=== PATIENT | female | born 1940 | race Caucasian/White ===

== ENCOUNTER → 2018-09-14 | Outpatient (REF) | payer MEDICARE, OTHER ==
[~2018-09-14] MED LIST: ACETIC ACID2 % AU; AMLODIPINE5 MG PO; ASPIRIN LOW DOS81 M2 PO; ASPIRIN325 MG PO; LEVOTHYROXIN75 MCG PO; LEVOTHYROXIN88 MC1 PO; LOTENSIN HCT1 TAB PO
== END | disposition home or self-care (01) ==
LOC: MAMMO 10:30
PROVIDERS: ATTEND Internal Medicine
DX: Z12.31 Encounter for screening mammogram for malignant neoplasm of breast (principal)

== ENCOUNTER 2019-03-03 08:08 | Emergency (ER) | payer MEDICARE, OTHER ==
[~2019-03-03] VITALS: Ht 167.6 cm; Wt 75.0 kg
[2019-03-03 08:42] LABS: HEMOGLOBIN 14.5 g/dl (12.0-16.0); IMMATURE GRANULOCYTES 0.7 % (0.0-5.0); MEAN CELL VOLUME 90.7 fL CALC (80.0-100.0); MEAN CORPUSCULAR HGB 29.2 pG CALC (26.0-32.0); MEAN CORPUSCULAR HGB CONC 32.2 g/L CALC (32.0-36.0); NEUT# 11.11 thou/uL (2.00-7.15); RED BLOOD COUNT 4.96 mill/uL (4.20-5.60)
[2019-03-03 08:58] LABS: PROTHROMBIN TIME 10.3 SECONDS (9.0-12.5)
[2019-03-03 09:00] LABS: ALBUMIN 4.4 g/dL (3.2-5.0); ALKALINE PHOSPHATASE 86 u/l (38-126); ANION GAP 13 (6-22 (CALC)); BUN 19 mg/dL (8-23); BUN/CREATININE RATIO 20 (12-20 (CALC)); CARBON DIOXIDE 30 mmol/l (22-30); CHLORIDE 100 mmol/l (95-108); CREATININE 0.9 mg/dL (0.5-1.0); GFR 60 ML/MIN (>=60 (CALC)); GFR FOR AFR.AMER. > 60 ML/MIN (>=60 (CALC)); SGOT/AST 20 u/l (9-36); SODIUM 139 mmol/l (137-146); TOTAL PROTEIN 8.1 g/dL (6.3-8.2)
[2019-03-03 12:00] VITALS: BP 163/77
== END 2019-03-03 12:00 ==
LOC: ED 08:08
PROVIDERS: Family Medicine
DX: I63.9 Cerebral infarction, unspecified (principal); R20.0 Anesthesia of skin; R29.705 NIHSS score 5

== ENCOUNTER 2019-07-03 | Emergency (ER) | payer MEDICARE, OTHER ==
[2019-07-03] MEDS ORDERED: ELIQUIS5 MG (11:56)
[2019-07-03] MEDS ORDERED: METOPROL TAR25 MG PO (11:57)
[2019-07-03 13:20] LABS: URINE BILIRUBIN - DIPSTICK NEGATIVE (NEGATIVE); URINE BLOOD DIPSTICK MODERATE (NEGATIVE); URINE COLOR YELLOW; URINE GLUCOSE - DIPSTICK NEGATIVE (NEGATIVE); URINE KETONE NEGATIVE (NEGATIVE); URINE LEUK ESTERASE NEGATIVE (NEGATIVE); URINE NITRITE - DIPSTICK NEGATIVE (Negative); URINE PROTEIN - DIPSTICK NEGATIVE (NEG-TRACE); URINE SPECIFIC GRAVITY <=1.005
[2019-07-03] MEDS ORDERED: TESSALON PER100 MG PO (13:49)
[2019-07-03] MEDS ORDERED: AMOXICILLIN875 MG PO (13:49)
== END 2019-07-03 14:02 | disposition home or self-care (01) ==
DX: J02.0 Streptococcal pharyngitis (principal); R05 Cough; T46.4X5A Adverse effect of angiotensin-converting-enzyme inhibitors, initial encounter; I10 Essential (primary) hypertension; E03.9 Hypothyroidism, unspecified; Z86.73 Personal history of transient ischemic attack (TIA), and cerebral infarction without residual deficits

== ENCOUNTER 2020-04-14 09:38 | Emergency (ER) | payer MEDICARE, OTHER ==
[~2020-04-14] VITALS: Ht 167.6 cm; Wt 85.0 kg
[~2020-04-14 09:38] MED LIST changes: +AMOXICILLIN875 MG PO; +ELIQUIS5 MG; +METOPROL TAR25 MG PO; +TESSALON PER100 MG PO
[2020-04-14] MEDS ORDERED: FAMCICLOVIR500 MG PO (09:57)
[2020-04-14] MEDS ORDERED: ULTRAM50 M1 PO (09:57)
[2020-04-14] MEDS ORDERED: ZOVIRAX52 TOP (09:57)
[2020-04-14 10:04] VITALS: BP 180/81
== END 2020-04-14 10:20 | disposition home or self-care (01) ==
LOC: ED 09:38
DX: B02.9 Zoster without complications (principal); I10 Essential (primary) hypertension; E03.9 Hypothyroidism, unspecified; Z86.73 Personal history of transient ischemic attack (TIA), and cerebral infarction without residual deficits

== ENCOUNTER 2021-02-06 13:46 | Emergency (ER) | payer MEDICARE, OTHER ==
[~2021-02-06 13:46] MED LIST changes: -ELIQUIS5 MG; +ELIQUIS5 MG PO; +FAMCICLOVIR500 MG PO; -METOPROL TAR25 MG PO; +TOPROL XL25 MG PO; +ULTRAM50 M1 PO; +ZOVIRAX52 TOP
[2021-02-06 14:52] LABS: HEMATOCRIT 41.7 % (37.0-47.0); HEMOGLOBIN 13.2 g/dl (12.0-16.0); IMMATURE GRANULOCYTES 0.1 % (0.0-5.0); MEAN CELL VOLUME 92.7 fL CALC (80.0-100.0); MEAN CORPUSCULAR HGB 29.3 pG CALC (26.0-32.0); MEAN CORPUSCULAR HGB CONC 31.7 g/dL CAL (32.0-36.0); NEUT# 10.21 thou/uL (2.00-7.15); RED BLOOD COUNT 4.5 mill/uL (4.20-5.60); RED CELL DISTRI WIDTH 12.4 % (11.5-15.5)
[2021-02-06 15:01] LABS: ALKALINE PHOSPHATASE 118 u/l (38-126); AMYLASE 38 u/l (30-110); ANION GAP 14 (6-22 (CALC)); BILIRUBIN, TOTAL 0.7 mg/dL (0.0-1.4); BUN 18 mg/dL (8-23); BUN/CREATININE RATIO 21 (12-20 (CALC)); CARBON DIOXIDE 26 mmol/l (22-30); CHLORIDE 97 mmol/l (95-108); CREATININE 0.9 mg/dL (0.5-1.0); GFR 60 ML/MIN (>=60 (CALC)); GFR FOR AFR.AMER. > 60 ML/MIN (>=60 (CALC)); LIPASE 60 u/l (23-300); SGOT/AST 26 u/l (9-36); SODIUM 134 mmol/l (137-146)
[2021-02-06 16:15] VITALS: BP 140/85
[2021-03-05] MEDS ORDERED: DICYCLOMINE HYD10 MG PO (07:42)
[2021-03-05] MEDS ORDERED: LEVO-T88 MCG PO (07:43)
[2021-06-05] MEDS ORDERED: SENNA-S1 TAB PO (12:58)
[2021-06-05] MEDS ORDERED: LOTENSIN HCT1 TAB PO (12:58)
[2021-06-05] MEDS ORDERED: MULTI VIT PO (12:59)
[2021-06-05] MEDS ORDERED: ACETAMIN500 M2 PO (12:59)
== END 2021-02-06 17:20 | disposition home or self-care (01) ==
LOC: ED 13:46
PROVIDERS: Emergency Medicine
DX: K59.00 Constipation, unspecified (principal); I10 Essential (primary) hypertension; E03.9 Hypothyroidism, unspecified; Z86.73 Personal history of transient ischemic attack (TIA), and cerebral infarction without residual deficits; Z90.710 Acquired absence of both cervix and uterus; Z85.42 Personal history of malignant neoplasm of other parts of uterus

== ENCOUNTER 2021-02-11 07:35 | Emergency (ER) | payer MEDICARE, OTHER ==
[2021-02-11 08:18] LABS: HEMOGLOBIN 13.4 g/dl (12.0-16.0); IMMATURE GRANULOCYTES 0.3 % (0.0-5.0); MEAN CELL VOLUME 91.1 fL CALC (80.0-100.0); MEAN CORPUSCULAR HGB 29.1 pG CALC (26.0-32.0); MEAN CORPUSCULAR HGB CONC 31.9 g/dL CAL (32.0-36.0); NEUT# 9.69 thou/uL (2.00-7.15); RED BLOOD COUNT 4.61 mill/uL (4.20-5.60); RED CELL DISTRI WIDTH 12.3 % (11.5-15.5)
[2021-02-11 08:38] LABS: ALKALINE PHOSPHATASE 114 u/l (38-126); ANION GAP 13 (6-22 (CALC)); BILIRUBIN, TOTAL 0.5 mg/dL (0.0-1.4); BUN 11 mg/dL (8-23); BUN/CREATININE RATIO 12 (12-20 (CALC)); CARBON DIOXIDE 30 mmol/l (22-30); CHLORIDE 93 mmol/l (95-108); CREATININE 0.9 mg/dL (0.5-1.0); GFR 60 ML/MIN (>=60 (CALC)); GFR FOR AFR.AMER. > 60 ML/MIN (>=60 (CALC)); LIPASE 34 u/l (23-300); POTASSIUM 4.3 mmol/l (3.5-5.1); SGOT/AST 21 u/l (9-36); SODIUM 132 mmol/l (137-146)
[2021-02-11 08:55] LABS: URINE BILIRUBIN - DIPSTICK NEGATIVE (NEGATIVE); URINE BLOOD DIPSTICK LARGE (NEGATIVE); URINE COLOR YELLOW; URINE GLUCOSE - DIPSTICK NEGATIVE (NEGATIVE); URINE KETONE NEGATIVE (NEGATIVE); URINE LEUK ESTERASE TRACE (NEGATIVE); URINE PH 6.5 (4.5-8.0); URINE PROTEIN - DIPSTICK NEGATIVE (NEG-TRACE); URINE SPECIFIC GRAVITY <=1.005; URINE UROBILINOGEN - DIPSTICK 0.2 E.U./dL (0.2)
[2021-02-11 09:08] LABS: URINE NITRITE - DIPSTICK NEGATIVE (Negative); URINE SQUAMOUS EPITHELIAL CELL FEW EPI/hpf (0-FEW); URINE WBC 0-2 WBC/hpf (0-5)
[2021-02-11] MEDS ORDERED: HYOSCYAMINE0.125 M3 PO (10:43)
[2021-02-11] MEDS ORDERED: HYDROCO/APAP1 TA9 PO (10:43)
[2021-02-11 10:52] VITALS: BP 169/87
[2021-03-05] MEDS ORDERED: DICYCLOMINE HYD10 MG PO (07:42)
[2021-03-05] MEDS ORDERED: LEVO-T88 MCG PO (07:43)
[2021-06-05] MEDS ORDERED: SENNA-S1 TAB PO (12:58)
[2021-06-05] MEDS ORDERED: LOTENSIN HCT1 TAB PO (12:58)
[2021-06-05] MEDS ORDERED: MULTI VIT PO (12:59)
[2021-06-05] MEDS ORDERED: ACETAMIN500 M2 PO (12:59)
== END 2021-02-11 11:05 | disposition home or self-care (01) ==
LOC: ED 07:35
PROVIDERS: Family Medicine
DX: R10.31 Right lower quadrant pain (principal); N32.9 Bladder disorder, unspecified; R91.1 Solitary pulmonary nodule; I31.9 Disease of pericardium, unspecified; I48.91 Unspecified atrial fibrillation; I10 Essential (primary) hypertension; E03.9 Hypothyroidism, unspecified; Z86.73 Personal history of transient ischemic attack (TIA), and cerebral infarction without residual deficits
CPT/HCPCS: Q9967

== ENCOUNTER 2021-02-16 11:26 | Emergency (ER) | payer MEDICARE, OTHER ==
[~2021-02-16 11:26] MED LIST changes: +HYDROCO/APAP1 TA9 PO; +HYOSCYAMINE0.125 M3 PO
[2021-02-16 12:57] LABS: URINE BLOOD DIPSTICK LARGE (NEGATIVE); URINE COLOR RED; URINE GLUCOSE - DIPSTICK NEGATIVE (NEGATIVE); URINE KETONE 15 mg/dL (NEGATIVE); URINE LEUK ESTERASE NEGATIVE (NEGATIVE); URINE PROTEIN - DIPSTICK 30 mg/dL (NEG-TRACE); URINE SPECIFIC GRAVITY 1.015; URINE UROBILINOGEN - DIPSTICK 0.2 E.U./dL (0.2)
[2021-02-16 13:02] LABS: URINE BILIRUBIN - DIPSTICK NEGATIVE (NEGATIVE); URINE NITRITE - DIPSTICK NEGATIVE (Negative)
[2021-02-16 13:13] LABS: HEMATOCRIT 38.5 % (37.0-47.0); HEMOGLOBIN 12.3 g/dl (12.0-16.0); IMMATURE GRANULOCYTES 0.2 % (0.0-5.0); MEAN CELL VOLUME 92.1 fL CALC (80.0-100.0); MEAN CORPUSCULAR HGB 29.4 pG CALC (26.0-32.0); MEAN CORPUSCULAR HGB CONC 31.9 g/dL CAL (32.0-36.0); NEUT# 11.49 thou/uL (2.00-7.15); RED BLOOD COUNT 4.18 mill/uL (4.20-5.60); RED CELL DISTRI WIDTH 12.5 % (11.5-15.5)
[2021-02-16 13:14] LABS: URINE RBC TNTC RBC/hpf (0-5)
[2021-02-16 13:32] LABS: ALBUMIN 3.6 g/dL (3.2-5.0); ALKALINE PHOSPHATASE 98 u/l (38-126); ANION GAP 12 (6-22 (CALC)); BILIRUBIN, TOTAL 0.6 mg/dL (0.0-1.4); BUN 9 mg/dL (8-23); BUN/CREATININE RATIO 11 (12-20 (CALC)); CARBON DIOXIDE 26 mmol/l (22-30); CHLORIDE 95 mmol/l (95-108); CREATININE 0.8 mg/dL (0.5-1.0); GFR > 60 ML/MIN (>=60 (CALC)); GFR FOR AFR.AMER. > 60 ML/MIN (>=60 (CALC)); LIPASE 31 u/l (23-300); POTASSIUM 4.4 mmol/l (3.5-5.1); SGOT/AST 20 u/l (9-36); SODIUM 129 mmol/l (137-146); TOTAL PROTEIN 7.2 g/dL (6.3-8.2)
[2021-02-16] MEDS ORDERED: KEFLEX500 MG PO (19:21)
[2021-02-16 20:05] VITALS: BP 168/68
[2021-03-05] MEDS ORDERED: DICYCLOMINE HYD10 MG PO (07:42)
[2021-03-05] MEDS ORDERED: LEVO-T88 MCG PO (07:43)
[2021-06-05] MEDS ORDERED: SENNA-S1 TAB PO (12:58)
[2021-06-05] MEDS ORDERED: LOTENSIN HCT1 TAB PO (12:58)
[2021-06-05] MEDS ORDERED: ACETAMIN500 M2 PO (12:59)
[2021-06-05] MEDS ORDERED: MULTI VIT PO (12:59)
== END 2021-02-16 20:07 | disposition home or self-care (01) ==
LOC: ED 11:26
DX: N32.9 Bladder disorder, unspecified (principal); I10 Essential (primary) hypertension; E03.9 Hypothyroidism, unspecified; Z86.73 Personal history of transient ischemic attack (TIA), and cerebral infarction without residual deficits; Z20.822 Contact with and (suspected) exposure to COVID-19
CPT/HCPCS: Q9967

== ENCOUNTER 2021-03-08 06:53 | Day surgery (SDC) | payer MEDICARE, OTHER ==
[~2021-03-08] VITALS: Ht 167.6 cm; Wt 69.9 kg
[~2021-03-08 06:53] MED LIST changes: +DICYCLOMINE HYD10 MG PO; +KEFLEX500 MG PO; +LEVO-T88 MCG PO
[2021-03-08 10:30] VITALS: BP 131/68
== END 2021-03-08 11:05 | disposition home or self-care (01) ==
LOC: ORM 06:53
PROVIDERS: ATTEND Urology
PROC: 0TBB8ZX Excision of Bladder, Via Natural or Artificial Opening Endoscopic, Diagnostic (ICD-10-PCS; principal; 2021-03-08)
DX: N32.89 Other specified disorders of bladder (principal); I48.91 Unspecified atrial fibrillation; I10 Essential (primary) hypertension; I25.10 Atherosclerotic heart disease of native coronary artery without angina pectoris; I71.4 Abdominal aortic aneurysm, without rupture; E03.9 Hypothyroidism, unspecified; R91.1 Solitary pulmonary nodule; Z86.73 Personal history of transient ischemic attack (TIA), and cerebral infarction without residual deficits; Z85.42 Personal history of malignant neoplasm of other parts of uterus; Z79.01 Long term (current) use of anticoagulants
CPT/HCPCS: J2710

== ENCOUNTER 2021-06-07 06:12 | Day surgery (SDC) | payer MEDICARE, OTHER ==
[~2021-06-07] VITALS: Ht 167.6 cm; Wt 68.0 kg
[~2021-06-07 06:12] MED LIST changes: +ACETAMIN500 M2 PO; +MULTI VIT PO; +SENNA-S1 TAB PO
[2021-06-07 09:39] VITALS: BP 147/67
== END 2021-06-07 10:10 | disposition home or self-care (01) ==
LOC: ORM 06:12
PROVIDERS: ATTEND Urology
PROC: 0TBB8ZX Excision of Bladder, Via Natural or Artificial Opening Endoscopic, Diagnostic (ICD-10-PCS; principal; 2021-06-07)
DX: C67.3 Malignant neoplasm of anterior wall of bladder (principal); I48.91 Unspecified atrial fibrillation; I10 Essential (primary) hypertension; I25.10 Atherosclerotic heart disease of native coronary artery without angina pectoris; I71.4 Abdominal aortic aneurysm, without rupture; E03.9 Hypothyroidism, unspecified; R91.1 Solitary pulmonary nodule; Z85.42 Personal history of malignant neoplasm of other parts of uterus; Z79.01 Long term (current) use of anticoagulants
CPT/HCPCS: J1956

== ENCOUNTER 2021-08-07 06:39 | Emergency (ER) | payer MEDICARE, OTHER ==
[~2021-08-07] VITALS: Ht 167.6 cm; Wt 68.0 kg
[2021-08-07 07:33] LABS: URINE BILIRUBIN - DIPSTICK NEGATIVE (NEGATIVE); URINE BLOOD DIPSTICK LARGE (NEGATIVE); URINE COLOR YELLOW; URINE GLUCOSE - DIPSTICK NEGATIVE (NEGATIVE); URINE KETONE TRACE mg/dL (NEGATIVE); URINE LEUK ESTERASE TRACE (NEGATIVE); URINE PH 6.5 (4.5-8.0); URINE PROTEIN - DIPSTICK TRACE mg/dL (NEG-TRACE); URINE SPECIFIC GRAVITY 1.015; URINE UROBILINOGEN - DIPSTICK 0.2 E.U./dL (0.2)
[2021-08-07 07:35] LABS: URINE NITRITE - DIPSTICK NEGATIVE (Negative)
[2021-08-07 07:42] LABS: URINE SQUAMOUS EPITHELIAL CELL FEW EPI/hpf (0-FEW)
[2021-08-07 07:43] LABS: URINE BACTERIA FEW hpf
[2021-08-07 07:53] LABS: HEMATOCRIT 40.1 % (37.0-47.0); HEMOGLOBIN 12.9 g/dl (12.0-16.0); MEAN CELL VOLUME 85.3 fL CALC (80.0-100.0); MEAN CORPUSCULAR HGB 27.4 pG CALC (26.0-32.0); MEAN CORPUSCULAR HGB CONC 32.2 g/dL CAL (32.0-36.0); RED CELL DISTRI WIDTH 13.6 % (11.5-15.5)
[2021-08-07] MEDS ORDERED: DICYCLOMINE10 MG PO (07:53)
[2021-08-07 08:09] LABS: ALBUMIN 3.6 g/dL (3.2-5.0); BILIRUBIN, TOTAL 0.8 mg/dL (0.0-1.4); BUN 16 mg/dL (8-23); BUN/CREATININE RATIO 19 (12-20 (CALC)); CHLORIDE 91 mmol/l (95-108); CREATININE 0.8 mg/dL (0.5-1.0); GFR > 60 ML/MIN (>=60 (CALC)); GFR FOR AFR.AMER. > 60 ML/MIN (>=60 (CALC)); IMMATURE GRANULOCYTES 7.3 % (0.0-5.0); LIPASE 42 u/l (23-300); PLATELET COUNT 68 thou/uL (130-400); POTASSIUM 4.2 mmol/l (3.5-5.1)
[2021-08-07 08:10] LABS: ALKALINE PHOSPHATASE 140 u/l (38-126); ANION GAP 14 (6-22 (CALC)); CARBON DIOXIDE 26 mmol/l (22-30); MANUAL DIFFERENTIAL YES; SGOT/AST 77 u/l (9-36); SODIUM 127 mmol/l (137-146)
[2021-08-07 08:14] LABS: BAND 2 % (0-8)
[2021-08-07 08:15] LABS: PLATELET ESTIMATE MOD DECREASE; POIKILOCYTOSIS FEW
[2021-08-07] MEDS ORDERED: OMNI-PAC300 MG PO (09:56)
[2021-08-07] MEDS ORDERED: TRAMADOL HYDROC50 M1 PO (10:07)
[2021-08-07 10:15] VITALS: BP 117/56
[2021-08-08] MEDS ORDERED: FLEXERIL5 M1 PO ×2 (10:12→15:06)
[2021-08-08] MEDS ORDERED: HYDROCODONE BIT PO (10:13)
[2021-08-08] MEDS ORDERED: LORTAB 5/3255 MG PO (10:14)
== END 2021-08-07 10:15 | disposition home or self-care (01) ==
LOC: ED 06:39
PROVIDERS: Family Medicine
DX: N39.0 Urinary tract infection, site not specified (principal); I10 Essential (primary) hypertension; E03.9 Hypothyroidism, unspecified; Z86.73 Personal history of transient ischemic attack (TIA), and cerebral infarction without residual deficits
CPT/HCPCS: Q9967

== ENCOUNTER 2021-08-08 09:17 | Observation (INO) | payer MEDICARE, OTHER ==
[~2021-08-08] VITALS: Ht 167.6 cm; Wt 65.0 kg
[~2021-08-08 09:17] MED LIST changes: +DICYCLOMINE10 MG PO; +OMNI-PAC300 MG PO; +TRAMADOL HYDROC50 M1 PO
--- NOTE | 2021-08-08 10:11 | NUR ---
PT TO ROOM PER W/C
[2021-08-08] MEDS ORDERED: FLEXERIL5 M1 PO ×2 (10:12→15:06)
[2021-08-08] MEDS ORDERED: HYDROCODONE BIT PO (10:13)
[2021-08-08] MEDS ORDERED: LORTAB 5/3255 MG PO (10:14)
[2021-08-08 10:42] LABS: HEMATOCRIT 40.2 % (37.0-47.0); HEMOGLOBIN 13.1 g/dl (12.0-16.0); IMMATURE GRANULOCYTES 5.7 % (0.0-5.0); MEAN CELL VOLUME 84.6 fL CALC (80.0-100.0); MEAN CORPUSCULAR HGB 27.6 pG CALC (26.0-32.0); MEAN CORPUSCULAR HGB CONC 32.6 g/dL CAL (32.0-36.0); NEUT# 7.35 thou/uL (2.00-7.15); RED BLOOD COUNT 4.75 mill/uL (4.20-5.60)
[2021-08-08 10:57] LABS: ALBUMIN 3.5 g/dL (3.2-5.0); BILIRUBIN, TOTAL 0.8 mg/dL (0.0-1.4); CREATININE 1.3 mg/dL (0.5-1.0); POTASSIUM 4.7 mmol/l (3.5-5.1); TOTAL PROTEIN 7.7 g/dL (6.3-8.2)
[2021-08-08 11:09] LABS: URINE BILIRUBIN - DIPSTICK NEGATIVE (NEGATIVE); URINE BLOOD DIPSTICK LARGE (NEGATIVE); URINE COLOR YELLOW; URINE GLUCOSE - DIPSTICK NEGATIVE (NEGATIVE); URINE KETONE TRACE mg/dL (NEGATIVE); URINE LEUK ESTERASE NEGATIVE (NEGATIVE); URINE PROTEIN - DIPSTICK NEGATIVE (NEG-TRACE); URINE UROBILINOGEN - DIPSTICK 0.2 E.U./dL (0.2)
[2021-08-08 11:13] LABS: URINE NITRITE - DIPSTICK NEGATIVE (Negative)
[2021-08-08 11:14] LABS: URINE EPITHELIAL CELLS FEW EPI/hpf (0-FEW)
--- NOTE | 2021-08-08 11:25 | NUR ---
PT RESTING QUIETLY ON STRETCHER, DAUGHTER AT BEDSIDE. ANSWERS QUESTIONS APPROPRIATELY. MORE AWAKE AT THIS TIME. DENIES ANY COMPLAINTS EXCEPT FOR BACK PAIN. ABLE TO MOVE ALL EXTREMITIES WELL. [facility] SCALE RANDOMLY DONE AND SHE RECEIVED A 0 AT THIS TIME. PT IS TO GO TO CT SCAN FOR A CTA. 2ND BAG OF FLUIDS HUNG FOR LACTIC ACID OF 3.2
--- NOTE | 2021-08-08 12:45 | NUR ---
PT RESTING QUIETLY ON STRETCHER, ADVISED OF WAIT TIME FOR TESTING. FAMILY REMAINS AT BEDSIDE.
--- NOTE | 2021-08-08 13:00 | NUR ---
PT STATES BACK IS HURTING WANTS TO SIT UP ON SIDE OF BED, OBTAINED A W/C AND SAT PT UP, STATES BACK FEELS BETTER, STATES THE TORADOL TOOK EDGE OFF OF THE PAIN. WAS ABLE TO GET UP AND MOVE FROM STRETCHER TO W/C ON OWN.
--- NOTE | 2021-08-08 13:19 | NUR ---
DR. FALCON HERE SPEAKING TO PT AND FAMILY, PT IS A RELATION TO DR. 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 WAS SEEN HERE YESTERDAY AND TOLD SHE HAD A UTI AND STARTED ON MEDICATIONS ALSO.
--- NOTE | 2021-08-08 13:59 | NUR ---
DAUGHTER VERY WORRIED ABOUT PT NOT GETTING PAIN MEDICATION WHEN SHE NEEDS IT. ADVISED WILL NOTIFIY THE NURSE THAT WILL BE TAKING CARE OF HER THAT SHE NEEDS TO MAKE SURE THAT THE PT HAS PAIN MEDICATION WHEN NEEDED.
--- NOTE | 2021-08-08 14:20 | NUR ---
REPORT CALLED TO MED SURG FLOOR, ADVISED DAUGHTER IS WANTING TO KNOW IF SHE COULD SPEND THE NIGHT AND I TOLD HER THAT SHE WOULD NEED TO TALK TO MED SURG NURSE
--- NOTE | 2021-08-08 14:45 | NUR ---
PT TAKEN TO FLOOR PER STRETCHER AND PT MOVED TO MED SURG BED.
[2021-08-08 15:00] VITALS: BP 127/57
--- NOTE | 2021-08-08 16:48 | NUR ---
Receive report from Anita CANDELARIA.ED. PATIETN ALERT AND ORIENTED X3. NO DISTRES AT THI TIME. PATIENT ACCOMPANIED T BY HER DAUGHTER. PATIENT WITH BACK PAIN COMPLAIN, SHE RECEIVE PAIN MEDICATIONS IN ED PREVIOUS COME HERE. EDUCATED PATIENT AND DAUGHTER ABOUT PAIN MANAGEMENT, NURSING AN CLINICAL CARE. COMFORT IS PROVIDED.
[2021-08-08 18:51] VITALS: BP 107/52
--- NOTE | 2021-08-08 20:00 | NUR ---
PATIENT IS RESTING IN BED WITH EYES CLOSED. RESPS ARE RAPID AND SHALLOW. O2 SAT WAS 90% ON ROOM AIR. PATIENT RESPONDS TO VERBAL STIMULI-AWAKE ALERT AND ORIENTED TO PERSON AND PLACE. FACE IS FLUSHED, SKIN IS WARM AND DRY. PATIENT CONT TO C/O OF ONGOING BACK PAIN. PATIENT IS AFEBRILE. O2 VIA NASAL CANNULA APPLIED INCREASING O2 SATS TO 95-96%. ABD IS DISTENEDED WITH HYPOACTIVE BS. NOT SURE WHEN HER LAST BM WAS-MAYBE 2-3 DAYS AGO. PATIENT WITH INCONT OF MODERATE AMT OF URINE. PERICARE WAS PROVIDED WITH SOAP AND WATER. TURNED AND REPOSITIONED. IV SITE TO LAC INTACT WITH GOOD BLOOD RETURN. IVF NS PATENT AND INFUSING AT 100CC/HR. NO PEDAL EDEMA NOTED AND PULSES ARE PALPABLE. SAFETY PRECAUTIONS REINFORCED. CALL LIGHT IN REACH. WILL CONT TO MONITOR.
[2021-08-09] VITALS (18 sets, daily range): BP systolic 118–171; BP diastolic 54–80
--- NOTE | 2021-08-09 00:02 | NUR ---
PATIENT C/O 04/14 BACK PAIN-MEDICATED WITH MORPHINE 2MG IVP ORDERED FOR PAIN. O2 VIA NASAL CANNULA IN PLACE AT 2LPM WITHG O2 SAT OF 94%. FACE REMAINS FLUSHED. IVF NS PATENT AND INFUSING ORDERED VIA LAC SITE, TELE MONITOR IN PLACE. SAFETY PRECAUTIONS REINFORCED. CALL LIGHT IN REACH. WILL CONT TO MONITOR.
--- NOTE | 2021-08-09 01:56 | NUR ---
PATIENT RESTING IN BED AT THIS TIME WITH O2 VIA NASAL CANNULA IN PLACE. STATES THAT SHE IS FEELING A LITTLE BETTER SINCE BEING MEDICATED FOR PAIN. IVF PATENT AND INFUSING VIA LAC SITE ORDERED. TELE MONITOR IN PLACE. SAFETY PRECAUTIONS REINFORCED. CALL LIGHT IN REACH. WILL CONT TO MONITOR.
[2021-08-09 05:42] LABS: HEMATOCRIT 39.9 % (37.0-47.0); MEAN CELL VOLUME 84.9 fL CALC (80.0-100.0); MEAN CORPUSCULAR HGB 27.7 pG CALC (26.0-32.0); MEAN CORPUSCULAR HGB CONC 32.6 g/dL CAL (32.0-36.0); RED CELL DISTRI WIDTH 14.3 % (11.5-15.5)
[2021-08-09 06:00] LABS: PLATELET COUNT 48 thou/uL (130-400)
[2021-08-09 06:03] LABS: CREATININE 1.4 mg/dL (0.5-1.0); MAGNESIUM 1.5 mg/dL (1.6-2.3); POTASSIUM 4.9 mmol/l (3.5-5.1)
--- NOTE | 2021-08-09 06:06 | NUR ---
RECIEVED LACTIC ACID RESULTING IN 5.3 FROM RR IN LAB. INFORMED
--- NOTE | 2021-08-09 06:12 | NUR ---
PATIENT RESTING IN BED AT THIS TIME WITH O2 VIA NASAL CANNULA IN PLACE-O2 SAT IS 94%. MOUTH BREATHER AND PROVIDED WITH ORAL HYGEINE USING TOOTHETTE SPONGES. IVF NS PATENT AND INFUSING VIA LEFT AC SITE AT 100CC/HR. SITE REMAINS HEALTHY. PATIENT INCONT OF MODERATE AMT OF URINE. TELE MONITOR IN PLACE WITH LAST READING ST-115 WITH PVC'S. PATIENT CONT TO HAVE SEVERE BACK PAIN-MEDICATED WITH MORPHINE 2MG IVP. BED ALARM IN PLACE FOR PATIENT SAFETY. CALL LIGHT IN REACH. WILL CONT TO MONITOR.
--- NOTE | 2021-08-09 07:34 | NUR ---
RECEIVE REPORT FROM ROSITA CANDELARIA. PATIENT DROWSY ONLY RESPONDS TO VOICE STIMULI SPEAKING EYE, DO NOT SPEAK. DR. LOPES IS NOTIFIED SEPSIS ALERT AND LAST LABORATORY VALUES AND PATIENT STATUS.
--- NOTE | 2021-08-09 11:45 | NUR ---
female pt received from ICU bed 2 via bed accompanied by Lola Marcano, RN and Kasandra Mejia, RN; bedside report received; assessment completed at this time; pt lethargic, non verbal; pt does open eyes when name is called; no s/s/grimaces of pain noted; no n/v noted; resp even and unlabored; lungs clear/ diminished bases; skin color flushed; hr reg; wk pedal pulses; no edema noted; st pac/pvc on monitor; abd firm/distended; bs hypoactive; no bm noted per property underwriter; 18Fr santana catheter inserted using senior technical recruiter x1 attempt; immed return of cloudy tea colored urine; santana clamped after draining 1000cc; #20 patent to lac saline locked; iv flushed and patent; no redness or edema noted at site; bruising noted to bue, right post torso; pt repositioned; npo d/t loc; daughter present at bedside; bed alarm set for pt safety; call light within reach; will continue to monitor
[2021-08-09 12:00] LABS: IMMATURE GRANULOCYTES 6.9 % (0.0-5.0)
[2021-08-09 12:01] LABS: MANUAL DIFFERENTIAL YES
[2021-08-09 12:06] LABS: BAND 8 % (0-8)
[2021-08-09 12:07] LABS: NUCLEATED RED BLOOD CELL 1 /100WBC (0-1); PLATELET ESTIMATE MOD DECREASE; POIKILOCYTOSIS FEW
--- NOTE | 2021-08-09 12:08 | NUR ---
PATIENT IS TRANSFER TO ICU REPORT GIVED TO ESTEFANY CANDELARIA.
--- NOTE | 2021-08-09 12:16 | NUR ---
Dr Thompson informed of temp 102.1; keno writer / runner request for route of tylenol to be changed d/t pt lethargic; orders placed
--- NOTE | 2021-08-09 12:41 | NUR ---
Dr Thompson present at bedside to assess pt and discuss plan of care;
--- NOTE | 2021-08-09 14:03 | NUR ---
resting in bed with eyes closed; no apparent distress noted; iv intact and patent; st pac/pvc on monitor; santana to gravity; o2 per nc; daughter remains at bedside; call light within reach; will continue to monitor
--- NOTE | 2021-08-09 15:09 | NUR ---
pt resting in bed with eyes closed; repositioned to right side, pillows under left side; daughter updated on condition/plan of care; daughter concerned about pt being in pain; freelance copywriter explained to daughter MD will be notified if pt displays any s/sx of pain; pt remains lethargic; temp 100.4; st on monitor; santana emptied; will continue to monitor
--- NOTE | 2021-08-09 15:17 | NUR ---
Dr Thompson called per staff in regards to pt not tracking or focusing on the left side; pt remains lethargic; orders received; MD declined stroke alert
--- NOTE | 2021-08-09 16:08 | NUR ---
pt transferred to ct scan via bed x2 staff; staff remains with pt
--- NOTE | 2021-08-09 16:17 | NUR ---
pt returned to unit from ct scan via bed; monitoring attachments connected; Dr Thompson called and informed of preliminary brain bleed; awaiting radiologist report; [id number]- stroke alert called;
--- NOTE | 2021-08-09 16:25 | NUR ---
STROKE ALERT CALLED, RT REPORTED TO BEDSIDE. AN ABG DRAWN EARLIER IN THE DAY WELL EKG. RT REMAINS AT BEDSIDE TO ASSIST IN ASSESSMENT.
--- NOTE | 2021-08-09 16:36 | NUR ---
Patient seen n ICU bed 2. Patient unresponsive LKW unknown. NIHSS 41. Patient has forced gazed deviation to the right. Unable to answer any questions or follow commands. No movement bilaterally upper or lower extremities no withdrawl from painful stimuli. Patient mute. Neurology on Tele and comfirms SUbdural and Subarachonoid bleed on right paritial lobes. Dr. Thompson informed of findins and orders recieved to start STAT transfer
--- NOTE | 2021-08-09 16:40 | NUR ---
JANNETTE Ramires called per this sign writer letterer or painter in regards to stat transfer for neurology; information provided; Dr Thompson to speak with Dr Coto; awaiting return call; will continue to monitor
--- NOTE | 2021-08-09 17:03 | NUR ---
racebook writer called Laura Acevedo (daughter) in regards to pt condition/status; Dr Thompson has spoken with family in regards to ct report; consent received to transfer; racebook writer will keep daughter up to date
--- NOTE | 2021-08-09 17:11 | NUR ---
called; NO available bed for critical neuro/ICU
--- NOTE | 2021-08-09 17:13 | NUR ---
[facility] called; spoke with Malena; information provided; awaiting return call
--- NOTE | 2021-08-09 17:16 | NUR ---
[facility] transfer center called per Jared; information provided; awaiting return call with bed availability for neuro surgery
--- NOTE | 2021-08-09 17:42 | NUR ---
call received from [facility]; bed assignment [id number]; report to be call to [phone]; accepting Dr Austin Hyatt accepting, Dr Wade specialist;
--- NOTE | 2021-08-09 17:46 | NUR ---
call placed to daughter Laura Acevedo; update provided; daughter consent to transfer to [facility]
--- NOTE | 2021-08-09 17:48 | NUR ---
information provided to [facility]; ETA 18 min
--- NOTE | 2021-08-09 18:00 | NUR ---
report called to Neuro-ICU BARI Butler; awaiting [facility]
--- NOTE | 2021-08-09 18:05 | NUR ---
[facility] staff present on unit; report given
--- NOTE | 2021-08-09 18:31 | NUR ---
daughter Laura Acevedo called per engineering technical writer; updated on pt condition/status; daughter Laura Acevedo consents to intubation prior to transfer; [facility] on unit to intubate; glucose 64; 1 amp dextrose admin as per [facility] request
--- NOTE | 2021-08-09 18:40 | NUR ---
pt intubated with 7.5 ETT at the 24cm line per [facility] staff; #18 to LEJ placed per [facility]; hematoma noted to right jugular site s/p EJ attempt per [facility]; OG placed;
--- NOTE | 2021-08-09 19:07 | NUR ---
pt discharged with [facility];
--- NOTE | 2021-08-09 19:08 | NUR ---
[facility] Malena called; ETA provided
--- NOTE | 2021-08-09 19:08 | NUR ---
call placed to Laura Acevedo; update provided on pt departure
--- NOTE | 2021-08-09 19:10 | NUR ---
Isreal Butler called per radio news writer; update on intubation, LEJ, right jug hematoma (s/p EJ attempt), og insertion and glucose of 64 with 1 amp d50 admin
== END 2021-08-09 17:42 | disposition short-term general hospital (02) ==
LOC: ED 09:17 → ED-I 11:01 → ED 12:41 → MS2 12:42 → ICU 08-09 11:45
PROVIDERS: Family Medicine; ADMIT Hospitalist; ATTEND Hospitalist
PROC: 0T9B70Z Drainage of Bladder with Drainage Device, Via Natural or Artificial Opening (ICD-10-PCS; principal; 2021-08-09)
DX: I62.01 Nontraumatic acute subdural hemorrhage (principal); I60.9 Nontraumatic subarachnoid hemorrhage, unspecified; M54.50 Low back pain, unspecified; N17.9 Acute kidney failure, unspecified; D69.6 Thrombocytopenia, unspecified; E87.8 Other disorders of electrolyte and fluid balance, not elsewhere classified; E87.1 Hypo-osmolality and hyponatremia; E87.2 Acidosis; I10 Essential (primary) hypertension; I48.91 Unspecified atrial fibrillation; E03.9 Hypothyroidism, unspecified; R62.7 Adult failure to thrive; Z68.23 Body mass index [BMI] 23.0-23.9, adult; E86.0 Dehydration; Z79.01 Long term (current) use of anticoagulants; Z86.73 Personal history of transient ischemic attack (TIA), and cerebral infarction without residual deficits; Z20.822 Contact with and (suspected) exposure to COVID-19
CPT/HCPCS: J0692; Q9967